=== PATIENT | male | born 1965 | race Hispanic/Latino ===

== ENCOUNTER 2019-09-04 21:54 | Emergency (ER) | payer BC, SELFPAY ==
[2019-09-04] MEDS ORDERED: Ketorolac Tromethamine 60 MG/2 ML VIAL ONE (23:23)
--- NOTE | 2019-09-05 00:10 | RAD ---
LEFT FOOT 3 VIEWS: Date: 09/04/2019 Soft tissue swelling is seen in the forefoot distally and dorsally. No acute underlying bony change s een. There is a little bony spurring in the first MTP joint, but this was also present on the 2013 fi lm. There is no periosteal reaction or area of bony destruction. IMPRESSION: Soft tissue swelling. POS: HOME
== END 2019-09-04 23:27 | disposition home or self-care (01) ==
LOC: BURERS 21:54
DX: M79.675 Pain in left toe(s) (principal); I10 Essential (primary) hypertension; E78.5 Hyperlipidemia, unspecified; K21.9 Gastro-esophageal reflux disease without esophagitis; Z79.899 Other long term (current) drug therapy
CPT/HCPCS: 96372; J1885